=== PATIENT | male | born 1930 | race Caucasian/White ===

== ENCOUNTER → 2018-04-07 | Day surgery (SDC) | payer MEDICARE ==
[~2018-04-07] VITALS: Ht 180.3 cm; Wt 89.0 kg
[~2018-04-07] MED LIST: ALLO300T2 PO; AMLO2.5T PO; ATOR40TA16 PO; BUPIVACAINE HCL PF 0.5% 10 ML VIAL ONE; BUPIVACAINE/EPINEPHRINE 0.75% PF 30 ML VIAL ONE; CARV3.12 PO; CENTCHW4 CHEW; CHLORHEXIDINE GLUCONATE 2 % 1 PACK (2 CLOTHS) TOPICAL PRN; GABA100C4 PO; IRBE300T11 PO; LACTATED RINGER'S 1000 ML IV PRN; METF500T PO; MUPIROCIN 2% OINT 22 GM TUBE ONE; OXYC1TAB36 PO; PANT40TA3 PO; PARO40TA2 PO; POVIDONE IODINE 5% (ANTISEPSIS KIT) 4 APPLICATIONS EACH NARE PRN; PRAD150C PO; SODIUM CHLORID 0.9% 500 ML IV PRN; TEMA30CA PO; ceFAZolin 1,000 MG/NS 100 ML IV SCH
[2018-04-07 11:40] VITALS: PULSE 61
[2018-04-07 13:10] VITALS: BP 103/69; PULSE 64; RESP 16; TEMP 98; O2SAT 94
--- NOTE | 2018-04-08 16:02 | EKG ---
Date Performed: 04/07/2018 Time Performed: 08:01:18 PTAGE: 88 years EKG: SINUS BRADYCARDIA WITH FIRST DEGREE AV BLOCK MODERATE INTRAVENTRICULAR CONDUCTION DELAY MOD ERATE ST DEPRESSION ABNORMAL ECG INTERPRETATION BASED ON A DEFAULT AGE OF 40 YEARS NO PREVIOUS TRACING DOCTOR: Michelle Purvis Interpretating Date/Time 04/08/2018 16:00:12
--- NOTE | 2018-04-15 10:57 | PD.OP ---
Operative Report Date of Surgery: April 07, 2018 Preoperative Diagnosis: (1) Dupuytren's contracture of left hand Postoperative Diagnosis: (1) Dupuytren's contracture of left hand Procedure: Ulnar palmar fasciectomy (11301) Fasciectomy with release of ring finger Dupuytren's cord (04936) Fasciectomy with release of small finger Dupuytren's cord (40894) Surgeon: Jonah Browning Baton Teacher(s): . Operation and Findings: 88-year-old male who presented to the clinic with a left ring finger and small finger PIP contracture due to Dupuytren's cords, which extended onto the ulnar palm to within 2 cm of the wrist crease. Risks benefits and alternative treatments were discussed. All questions were answered and the patient expressed understanding. The patient elected to assume the risks of regional fasciectomy and excision of palmar digital Dupuytren's cords. Informed consent was obtained. The surgical site was marked in the preoperative holding bay. The patient was given antibiotics on-call to the operating room. The patient was taken to the operating room and all pressure points were padded. A surgical timeout was performed. After the smooth induction of general anesthesia, the surgical site was instilled with quarter percent Marcaine with epinephrine. An appropriately padded upper extremity tourniquet was placed. The surgical site was prepped and draped in the usual sterile fashion. Following exsanguination with an Esmarch bandage, the tourniquet was inflated to 250 mmHg. Attention was first turned to the palmar aspect of the cords. The ring finger and small finger central cords came to a V at about the distal palmar crease, and then continued proximally to roughly 2 cm from the wrist crease. A longitudinal incision was made over the palmar cord proximal to the split. The cord was sharply dissected from the overlying skin flaps. Following this a hemostat was used to bluntly dissect immediately deep to the cord at the proximal aspect. Following this the proximal cord was sharply incised using the hemostat as a backstop. The cord was placed on tension and retracted distally. The underlying soft tissue was meticulously dissected free from the cord. The cord was then dissected towards the ring finger. Kyler incisions were extended from the current palmar incision to the middle phalanx of the ring finger. Blunt dissection was carried down to the flexor tendon sheath over the PIP. Following this dissection was carried radially and ulnarly , maintaining thick Kyler skin flaps. The neurovascular bundles had been located in the palm and these were traced distally. Spiral cord was appreciated. Meticulous dissection was used to separate the spiral cord from the neurovascular bundle. Following this the cord was traced to the middle of the middle phalanx. After this the small finger extension of the palmar cord was dissected free in a similar fashion. This was also a spiral cord which took extended painstaking dissection. After all 3 cords had been dissected, the tourniquet was released, and 110 minutes. All digits pinked up nicely. There was no pulsatile bleeding. Hemostasis was ensured with the bipolar cautery. The skin was closed with interrupted and running 4-0 nylons. The surgical site was cleaned. The incision was dressed with mupirocin ointment Xeroform gauze dry gauze fluffs and an appropriately padded volar splint. All needle sponge and instrument counts were correct 2. Patient arrived stable and doing well to the PACU. Jonah Browning MD April 15, 2018 10:57
== END | disposition home or self-care (01) ==
LOC: PHSDC 06:05
PROVIDERS: ATTEND Student in an Organized Health Care Education/Training Program
DX: M72.0 Palmar fascial fibromatosis [Dupuytren] (principal); I44.0 Atrioventricular block, first degree; E11.9 Type 2 diabetes mellitus without complications; Z79.84 Long term (current) use of oral hypoglycemic drugs
CPT/HCPCS: 01810; 26121; 26123; 26125; 82948; 88304; 93005; J0690; J3010; J7120